=== PATIENT | male | born 1970 | race Caucasian/White ===

== ENCOUNTER 2017-08-21 14:26 | Emergency (ER) | payer BC, OTHER ==
[~2017-08-21] VITALS: Ht 172.7 cm; Wt 85.0 kg
[~2017-08-21 14:26] MED LIST: ESCI1TAB10 PO
[2017-08-21 14:32] VITALS: TEMP 37; Ht 172.7 cm; Wt 85.0 kg
--- NOTE | 2017-08-21 15:19 | DIAGNOSTIC IMAGING REPORT ---
R ANKLE MIN 3 VIEWS ROUTINE CLINICAL HISTORY: Right ankle pain following fall. COMPARISON: None FINDINGS: Alignment of the right ankle is anatomic. There is no acute fracture. Talar dome is intact. There is marked lateral ankle soft tissue swelling. IMPRESSION: 1. No acute fracture or dislocation of the right ankle. 2. Marked lateral ankle soft tissue swelling. Electronically signed by: Luis Felipe Rebolledo M.D. 08/21/2017 3:18 PM Dictated Date/Time: 08/21/2017 3:17 PM
--- NOTE | 2017-08-21 15:27 | EMERGENCY ROOM VISIT NOTE ---
History First contact with patient: 14:37 Chief Complaint: ANKLE PAIN Stated Complaint: RIGHT ANKLE, FELL DOWN TWO STEPS History of Present Illness The patient is a 47 year old male who presents to the Emergency Room via private vehicle with complaints of "right ankle, fell down 2 steps". The patient states that just prior to 2 PM this afternoon he was walking by the hub at [facility], and notes that he missed a step and injured his right ankle. He states that the pain is on the lateral aspect and rates the pain currently as a 4/10. He notes it is worse than the lateral aspect. He denies any numbness, tingling or other injury. Review of Systems A complete 6-point Review of Systems was discussed with the patient, with pertinent positives and negatives listed in the History of Present Illness. All remaining Review of Systems questions can be considered negative unless otherwise specified. Past Medical/Surgical History Medical Problems: (1) Dizziness And Giddiness (2) Enlargement Lymph Nodes Family History Noncontributory Social History Smoking Status: Never Smoker Drug Use: none Housing Status: lives with family Occupation Status: employed Current/Historical Medications Scheduled Escitalopram Oxalate (Lexapro), 20 MG PO DAILY Physical Exam Vital Signs Date Time Temp Pulse Resp B/P (MAP) Pulse Ox O2 Delivery O2 Flow Rate FiO2 08/21/17 16:08 65 16 118/72 99 08/21/17 14:32 37.0 62 16 121/79 99 Room Air Physical Exam VITAL SIGNS - Vital signs and nursing notes were reviewed. Stable. GENERAL -47-year-old male appearing his stated age who is in no acute distress. Communicates well with provider and answers questions appropriately. SKIN - Without rashes. Edema overlying the right lateral malleolus. No erythema, open fracture or deformity noted. EXTREMITIES - No clubbing or peripheral cyanosis. No pretibial edema present. Tenderness and edema overlying the right lateral malleolus. There is no proximal caldwell, knee, foot tenderness. Tenderness localized to the right lateral malleolar region he is neurovascularly intact in this region. Decreased range of motion secondary to pain. +5/5 strength noted in UE/LE bilaterally. Medical Decision & Procedures ER Provider Diagnostic Interpretation: R ANKLE MIN 3 VIEWS ROUTINE CLINICAL HISTORY: Right ankle pain following fall. COMPARISON: None FINDINGS: Alignment of the right ankle is anatomic. There is no acute fracture. Talar dome is intact. There is marked lateral ankle soft tissue swelling. IMPRESSION: 1. No acute fracture or dislocation of the right ankle. 2. Marked lateral ankle soft tissue swelling. Electronically signed by: Luis Felipe Rebolledo M.D. 08/21/2017 3:18 PM Dictated Date/Time: 08/21/2017 3:17 PM Medical Decision Patient was seen and evaluated as above in room D5. Review was performed of nursing notes and vital signs. After obtaining a thorough history and physical examination the above work up was performed. He presents to us today with right lateral malleolar edema status post injury. X-ray obtained. No fracture. I suspect sprain. He will be fitted with a gel ankle splint for immobilization and crutches to decrease weightbearing status. He is to follow with orthopedics/occupational health. He is to return if worsening. He declined pain medication while here. He was given ice packs. the patient was educated upon management, had questions answered prior to discharge, and was discharged home in good condition. In the evaluation and treatment of this patient, the following differential diagnoses were considered: Ankle Fracture, Ankle Sprain, Distal Fibula Fracture , Distal Tibia Fracture, Foot Fracture, Maisonneuve Fracture. Impression Primary Impression: Right ankle pain Departure Information Dispostion Home / Self-Care Condition GOOD Referrals No Doctor, Assigned (PCP) Baljit Chance MD Patient Instructions My [facility] Additional Instructions You have been treated in the Emergency Department for a R Ankle injury. For pain control, you can use the following [id number]-oxgomav medicines (if >12 yo): - Regular strength (325mg/tab) Tylenol (acetaminophen) 2 tabs every 4-6 hours as needed. Do not exceed 12 tablets in a 24 hour period. Avoid taking more than 3 grams (3000 mg) of Tylenol per day. This includes any other sources of acetaminophen you may take on a regular basis. - Regular strength (200 mg/tab) Advil (ibuprofen) 1-2 tabs every 4-6 hours as needed. Do not exceed a dose of 3200 mg per day. If this is a recent injury (<24 hrs), ice can be applied to the area of pain for the first 3 days to help decrease pain and inflammation. You have been provided the number for an Orthopaedic Surgeon. You should call this number as soon as possible to establish a follow-up visit from today's Emergency Department visit. Keep the ankle brace/splint in place until cleared by Orthopedics/workers compensation. Use the crutches you have been provided to keep ALL weight off of the ankle until weight bearing is tolerable. Return to the Emergency Department if your current symptoms worsen despite treatment course outlined above, or if you develop any of the following symptoms : intractable pain despite aforementioned treatment course or new onset of numbness or tingling of the foot.
[2017-08-21 16:08] VITALS: BP 118/72; PULSE 65; O2SAT 99
== END 2017-08-21 16:08 | disposition home or self-care (01) ==
LOC: C.EDB 14:27 → C.EDD 16:08
DX: M25.571 Pain in right ankle and joints of right foot (principal); W10.9XXA Fall (on) (from) unspecified stairs and steps, initial encounter; Y93.01 Activity, walking, marching and hiking; Y99.8 Other external cause status; Y92.29 Other specified public building as the place of occurrence of the external cause

== ENCOUNTER 2022-11-17 07:08 | Observation (INO) ==
--- NOTE | 2022-11-14 10:06 | Anesthesiology Consultation ---
Date of Service November 14, 2022 Assessment & Plan (1) Encounter for pre-operative examination: Chart Review Chart Review: Acceptable Risk for Surgery (pending EKG DOS ) and Patient NOT seen in Pre Admission Testing - Due to age- check EKG DOS (not done preoperatively) -COVID screening: Per PAT nursing assessment on 11/10/22. No known COVID-19 positive contacts or current COVID-19 related symptoms. Travel screen negative. At surgeon discretion if preop Covid testing being done. Removal impacted wisdom teeth 07/06/21= Done under GA With Grade 1-2 view with MAC #3. ETT #7.0, nasal. DVL x 1, atraumatic History Surgery Operation Date: 11/17/22 07:15 Proposed Procedures p Lefort I, Sagittal Osteotomy, Surgical Splint - Rosalio Gutierrez DMD Height/Weight Height: 5 ft 8 in Weight: 70.76 kg Allergies Allergy/AdvReac Type Severity Reaction Status Date / Time minocycline [From Minocin] Allergy Intermediate Hives Verified 11/10/22 08:53 Tetracyclines Allergy Intermediate HIVES Verified 11/10/22 08:53 Medications Home Medications Medication Instructions Recorded Confirmed Last Taken amoxicillin 875 mg-potassium 1 tab PO Q12H #20 tabs 11/10/22 11/10/22 Unknown clavulanate 125 mg tablet chlorhexidine gluconate 0.12 % 15 ml mucous membrane BID pre and 11/10/22 11/10/22 Unknown mouthwash (Peridex) post op Jaw Surgery #473 mL hydrocodone 5 mg-acetaminophen 325 1 tab PO Q4H PRN pain #15 tabs 11/10/22 11/10/22 Unknown mg tablet ondansetron HCl 8 mg tablet 8 mg PO Q8H PRN nausea and 11/10/22 11/10/22 Unknown vomiting #10 tabs Past Medical History Medical History Anxiety and depression Past Family History Family History Mother Breast cancer Other No family history of adverse response to anesthesia Past Surgical History Surgical History H/O excision of mass (~2000) Excision of mass on neck>BENIGN Hx of colonoscopy Hx of cosmetic surgery (~2003) Chin implant Hx of wisdom tooth 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/2021- w/ lap welder Social History Smoking Status: Former smoker Smoking cigarettes per day: smoked cigars occasionally- quit yrs ago Do You Dip or Chew Tobacco: No Hx Alcohol Use: Yes alcohol intake frequency: holidays/special occasions only Hx Substance Use: No substance use type: does not use Lab Results Anesthesia Preop Results Results Anesthesia Widget: WBC 6.57 K/ul (4.8-10.8) 11/10/22 Hgb 14.3 g/dl (14.0-18.0) 11/10/22 Hct 41.8 % (42.0-52.0) L 11/10/22 Plt 205 K/uL (130-400) 11/10/22 PT 11.8 Seconds (9.0-12.0) 11/10/22 PTT 25.6 Seconds (21.0-31.0) 11/10/22 INR 1.1 (0.9-1.1) 11/10/22 Blood Type O Positive 11/10/22 Antibody Screen NEGATIVE 11/10/22
[~2022-11-17 07:08] MED LIST changes: -ESCI1TAB10 PO; +LACTATED RINGER'S 1,000 ML IV SCH; +LR 15ML/HR IV SCH; +ceFAZolin 2000MG 2,000 MG/15 ML SYR IV SCH
[2022-11-17] MEDS ORDERED: LIDOCAINE 2% 2 ML VIAL/AMP(20MG/ML) INFIL ONE ×2 (07:50→07:57)
[2022-11-17] MEDS ORDERED: PROPOFOL IV EMULSION 10 MG/ML 20 ML VIAL IV ONE ×2 (07:50→14:02)
[2022-11-17] MEDS ORDERED: ONDANSETRON INJ 2 MG/ML 2 ML VIAL ONE (07:50)
[2022-11-17] MEDS ORDERED: DEXAMETHASONE SOD INJ 4 MG/ML VIAL ONE (07:50)
[2022-11-17] MEDS ORDERED: MIDAZOLAM HCL 1 MG/ML 2ML VIAL ONE (07:51)
[2022-11-17] MEDS ORDERED: fentaNYL citrate PF 100 MCG/2 ML VIAL ONE ×3 (07:51→11:04)
[2022-11-17] MEDS ORDERED: ROCURONIUM BROMIDE 10 MG/ML 5 ML VIAL IV ONE ×10 (07:56→10:54)
[2022-11-17] MEDS ORDERED: OXYMETAZOLINE 0.05% 30 ML BTL NAE ONE (08:23)
[2022-11-17] MEDS ORDERED: OXYMETAZOLINE 0.05% 30 ML BTL ONE (08:24)
--- NOTE | 2022-11-17 08:28 | History & Physical Bridge Note ---
Date of Service November 17, 2022 History & Physical Bridge Note I have examined the patient, reviewed the History & Physical and in the interval since the performance of the History & Physical I have noted the following changes of clinical significance: no changes noted. OK for the planned OG surgery
[2022-11-17] MEDS ORDERED: PROMETHAZINE HCL 6.25 MG in SODIUM CHLORIDE 0.9% 50 ML IV PRN (08:29)
[2022-11-17] MEDS ORDERED: ONDANSETRON INJ 2 MG/ML 2 ML VIAL IV PRN ×2 (08:29→14:22)
[2022-11-17] MEDS ORDERED: ATROPINE SULFATE 0.1 MG/ML 10ML SYR IV PRN (08:29)
[2022-11-17] MEDS ORDERED: ePHEDrine sulfate 50 MG/ML AMP IV PRN (08:29)
[2022-11-17] MEDS ORDERED: CHLORHEXIDINE GLUCONATE 0.12% 480 ML MT ONE (08:32)
[2022-11-17] MEDS ORDERED: BUPIVACAINE/EPINEPHRINE 0.5% 1:200,000 1.8 ML CARP ONE ×2 (08:32→09:06)
[2022-11-17] MEDS ORDERED: TRIAMCINOLONE ACET 0.1% OINT 15 GM TUBE ONE (08:32)
[2022-11-17] MEDS ORDERED: ePHEDrine sulfate 50 MG/ML SYR ONE (10:06)
[2022-11-17] MEDS ORDERED: SUGAMMADEX SODIUM 200 MG/2 ML VIAL IV ONE (12:13)
[2022-11-17] MEDS ORDERED: SURGICEL ABSORB HEMOSTAT 2IN X 14IN TOP ONE ×3 (12:39→13:37)
[2022-11-17] MEDS: fentaNYL citrate PF 100 MCG/2 ML VIAL IV PRN ×3 (14:20→14:40)
[2022-11-17] MEDS ORDERED: ACETAMINOPHEN SUSP 325 MG/10.15 ML UDC PO PRN (14:22)
[2022-11-17] MEDS ORDERED: ACETAMINOPHEN/HYDROcodone ELIX 15 ML/CUP PO PRN ×2 (14:22)
[2022-11-17] MEDS ORDERED: OXYMETAZOLINE 0.05% 30 ML BTL PRN (14:22)
[2022-11-17] MEDS ORDERED: LORazepam 2 MG/1 ML VIAL IV PRN (14:22)
[2022-11-17] MEDS ORDERED: MoRPHine SULFATE 10 MG/ML CARP/VIAL IV PRN (14:22)
[2022-11-17] MEDS ORDERED: MoRPHine SULFATE 4 MG/ML 1 ML CARP\\VIAL IV PRN (14:22)
--- NOTE | 2022-11-17 15:45 | XRay Report ---
XR mandible <4V CLINICAL HISTORY: Status Post-Op Surgery AP Mandibular and Jaw View COMPARISON STUDY: Mandible 07/06/2021. FINDINGS: Status post bilateral maxillary and mandibular osteotomies transfixed with cortical plates and screws. The alignment appears near anatomic. The hardware appears intact. Orthodontic hardware is noted. IMPRESSION: Postoperative changes as described above. ACT 112: Negative or not required by law. Electronically signed by: Solomon Bertrand M.D. 11/17/2022 3:44 PM
--- NOTE | 2022-11-17 15:49 | Electrocardiogram Report ---
Test Reason : Blood Pressure : / mmHG Vent. Rate : 054 BPM Atrial Rate : 054 BPM P-R Int : 220 ms QRS Dur : 092 ms QT Int : 432 ms P-R-T Axes : 078 078 074 degrees QTc Int : 409 ms Sinus bradycardia with 1st degree A-V block Early repolarization Otherwise normal ECG When compared with ECG of 06-JUL-2021 05:49, No significant change was found Confirmed by Alan Patel ([id number]) on 11/17/2022 3:49:30 PM Referred By: Rosalio Gutierrez Confirmed By:Alan Patel
[2022-11-17] MEDS ORDERED: ICU Protocol for HYPERglycemia SCH (16:30)
--- NOTE | 2022-11-17 16:39 | Post Operative Brief Note ---
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 I propose the following surgical procedures to correct this skeletal malocclusion. LeFort I CPT 07163 with bone graft Sagittal Osteotomy CPT 14657 Surgical splint CPT 31660 I identified the patient and participated in the time-out.: Yes Procedure Operation Date: 11/17/22 08:25 Actual Procedures p Lefort I Sagittal Split(Not Applicable) - Rosalio Gutierrez, SHMUEL Surgeon Rosalio Gutierrez, SHMUEL Subsea Engineer none Estimated Blood Loss 500 Findings Consistent with Post-Op Diagnosis Very retrognathic upper and lower jaws Mandibular advancement over 10 mm Specimens Specimen Description: none per surgeon Drains Fabian Catheter Complications none
[2022-11-17] MEDS: dexAMETHasone 6 MG in SYRINGE 0 ML IV SCH ×2 (16:50→21:04)
--- NOTE | 2022-11-17 16:51 | Oral/Maxillofacial Progress Nt ---
Date of Service November 17, 2022 Assessment & Plan Admission and Anticipated Discharge Date Admission Date: November 17, 2022 Delfina Joya had a major orthognathic surgery procedure this morning. The plan was to advance the maxilla 3 mm with a change in the occlusion plan to allow counterclockwise rotation with a 10 mm sagittal advancement of the lower jaw. This required an excessive amount of muscle striping and reflection to achieve a relaxed advancement of the segments. The surgery took about 5 hours and the blood loss was 500 mostly from oozing of the muscles and marrow spaces. The bleeding was controlled with packing and dressings. At 4:45 Toan is resting in room 3 of the ICU. Given the amount of surgery, blood loss, large 10 + mm advancement ICU admission post op was appropriate care as patient is very lethargic presently. The post op X Rays look great. The inferior nerve was freed but stretched a large distance. The plate fixation on the maxilla and screw fixation on the lower is very stable. Plan Continue supportive care over night. I will see Toan in AM and make a decision as to discharge from ICU at that time. Results & Data Vital Signs (Past 12 Hours) Vital Signs Temp Pulse Pulse Pulse Resp BP BP 11/17/22 16:15 88 9 L 11/17/22 16:15 83 16 119/69 11/17/22 16:00 67 16 132/75 11/17/22 15:45 73 16 121/65 11/17/22 15:30 74 16 134/71 11/17/22 15:15 37.4 C 70 16 143/73 H 11/17/22 15:15 75 11/17/22 15:15 11/17/22 15:00 73 14 147/70 H 11/17/22 14:50 36.3 C L 80 18 139/70 11/17/22 14:40 75 15 132/67 11/17/22 14:30 80 17 124/62 11/17/22 14:20 82 16 132/67 11/17/22 14:16 36 C L 82 20 125/71 11/17/22 07:40 36.5 C 53 L 20 129/79 Pulse Ox Pulse Ox O2 Del Method O2 Del Method O2 Flow Rate 11/17/22 16:15 95 11/17/22 16:15 96 Room Air 11/17/22 16:00 95 Room Air 11/17/22 15:45 97 Room Air 11/17/22 15:30 96 Room Air 11/17/22 15:15 99 2 11/17/22 15:15 11/17/22 15:15 97 Room Air 11/17/22 15:00 98 Nasal Cannula 2 11/17/22 14:50 98 Nasal Cannula 2 11/17/22 14:40 96 Nasal Cannula 2 11/17/22 14:30 98 Nasal Cannula 2 11/17/22 14:20 94 Room Air 11/17/22 14:16 98 Room Air 11/17/22 07:40 100 Room Air PG Care Time/CCT Total # of Minutes Spent Total Time Spent with Patient: Total time spent is greater than 50% in coordination of care (as documented) at patient's floor/unit and/or counseling patient: Coding Level of Care Code None Diagnoses
[2022-11-17] MEDS ORDERED: GLUCAGON FOR INJ 1 MG VIAL SQ PRN (16:57)
[2022-11-17] MEDS ORDERED: CARBOHYDRATES FOR HYPOGLYCEMIA PO PRN (16:57)
[2022-11-17] MEDS ORDERED: GLUCOSE 40% GEL 15 GM TUBE PO PRN (16:57)
[2022-11-17] MEDS ORDERED: GLUCOSE 10 TAB/TUBE PO PRN (16:57)
[2022-11-17] MEDS ORDERED: DEXTROSE 50% 50 ML SYRINGE IV PRN (16:57)
[2022-11-17] MEDS: INSULIN ASPART PER UNIT CHARGE SC SCH ×2 (17:24→21:02)
[2022-11-17] MEDS: KETOROLAC 30 MG/ML VIAL IV SCH ×2 (17:30→23:33)
[2022-11-17] MEDS: SODIUM CHLORIDE 0.9% 1000ML 1,000 ML IV SCH (20:42)
[2022-11-17] MEDS ORDERED: TRIAMCINOLONE ACET 0.1% OINT 15 GM TUBE EXT SCH (21:00)
[2022-11-17] MEDS: ceFAZolin 2000MG 2,000 MG/15 ML SYR IV SCH (21:03)
[2022-11-17] MEDS: CHLORHEXIDINE GLUCONATE 0.12% 480 ML MT SCH (21:03)
--- NOTE | 2022-11-17 23:46 | Critical Care Consultation ---
Date of Consultation November 17, 2022 Assessment & Plan (1) Maxillary retrognathism: (2) Mandibular retrognathism: (3) Anxiety: Plan Reason Critically Ill: S/P Lefort I surgery - to ICU for airway monitoring, and continued evaluation of post anesthesia recovery/sedation. Neuro - Acute pain, Anxiety CAM ICU: NEGATIVE -Pain s/p Lefort I- tiered pain control in place- Rescue Narcan if needed - Ativan PRN Cardiac - No acute needs - NSR on monitor and hemodynamics with adequate SBP and MAPS Respiratory - S/P Lefort I - RR and SPO2 are adequate following recovery- - He is moving good air with no stridors or hematomas- bands in place with cutters at bedside - Trachea midline no hematoma- handling secretions well- Continue Decadron 6 q6 as ordered by primary - Oxymetazoline as needed GI - No acute needs - with antiemetics as needed - Clear diet is ordered RENAL/LYTES - No acute needs - No acute needs ENDO - No acute needs HEME - No acute needs - 500 ml blood loss in OR - consider follow up labs if needed in am - Currently with no drainage, hemodynamics stable and SPO2 >95% on room air ID - No acute needs - Continue with Ancef postoperative care q8 hours - CHG swish and spit BID LINES/IV ACCESS - PIV Continue use of these lines DVT PROPHYLAXIS - SCDS, ambulation - OOB to chair in am- if not dc'd home in morning and hemostasis is ensured can start chemoprophy DISPO: ICU overnight I have personally spent 30 minutes of critical care time in the direct management of this patient. This includes time spent evaluating patient, direct bedside care, chart review, placing orders, interpretation of diagnostic studies, discussion with consultants, patient, and family members, as well as other required patient management activities. This time is exclusive of all separately billable procedures, and separate from and in addition to any other critical care service time. Thank you for allowing us to participate in the care of this patient. Please refer to my attending physician's documentation for any further recommendations. History of Present Illness Reason for Consultation: S/P Lefort I for maxillary hypoplasia Requesting Physician: Rosalio Gutierrez DMD Attending Physician: Rosalio Gutierrez DMD History of Present Illness 52 YOM with medical history of Anxiety, Maxxillary Retrognathism, Mandibular retrognathism who is S/P Lefort I completed by Dr. Gutierrez. Operative note reviewed with EBL 500ml, advancement of lower jaw 10mm that required "excessive muscle striping and reflection to achieve a relaxed advancement of segments. To ICU for slowly awakening post 5 hour anesthesia time. He was evaluated in the ICU earlier in shift, where he awakens to voice is with ice wrap to face and jaw. He is with bands and cutters at the bedside. Pain controlled at this time and is without n/v or supplemental oxygen. Allergies Allergy/AdvReac Type Severity Reaction Status Date / Time minocycline [From Minocin] Allergy Intermediate Hives Verified 11/17/22 07:38 Tetracyclines Allergy Intermediate HIVES Verified 11/17/22 07:38 Home Medications Medication Instructions Recorded Confirmed Type amoxicillin 875 mg-potassium 1 tab PO Q12H #20 tabs 11/10/22 11/17/22 Rx clavulanate 125 mg tablet chlorhexidine gluconate 0.12 % 15 ml mucous membrane BID pre and 11/10/22 11/17/22 Rx mouthwash (Peridex) post op Jaw Surgery #473 mL hydrocodone 5 mg-acetaminophen 325 1 tab PO Q4H PRN pain #15 tabs 11/10/22 11/17/22 Rx mg tablet ondansetron HCl 8 mg tablet 8 mg PO Q8H PRN nausea and 11/10/22 11/17/22 Rx vomiting #10 tabs Patient History Medical History Anxiety and depression Surgical History H/O excision of mass (~1999) Excision of mass on neck>BENIGN Hx of colonoscopy Hx of cosmetic surgery (~2003) Chin implant Hx of wisdom tooth 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/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 Family History Mother Breast cancer Other No family history of adverse response to anesthesia Social History Smoking Status: Former smoker Tobacco Type: Cigars Cigarettes Per Day: smoked cigars occasionally- quit yrs ago; Second Hand Exposure: No; Do You Dip or Chew Tobacco: No; Tobacco Cessation Education Requested by Patient: No Hx Alcohol Use: Yes Hx Substance Use: No Preferred Language: Frisian Communication Ability: Effective Visual Impairment: No Limitations Technical Assoc Required: No Beliefs That Will Affect Care: None marital status: Current Living Situation: Family Current Living Situation Comment: , SON AND DAUGHTER current occupational status: employed current occupation: [employer] Other Information That Helps Us Care for You: No Feels Safe at Home: Yes Safety Concerns: Feels Safe At This Time Assistive Devices: None Review of Systems Review of Systems: REVIEW OF SYSTEMS: Constitutional: No fever, sweats or chills Eyes: No diplopia, no worsening or blurred vision ENT: no trouble swallowing Respiratory: No cough, sputum, no dyspnea Cardiovascular: No chest pain, tightness or palpitations Abdomen: No pain, nausea, vomiting, diarrhea or constipation Musculoskeletal: No joint pain, calf pain, swelling Neurologic: No weakness, numbness, Psychiatric: (+) anxiety Skin: No rash or itch Physical Exam Physical Exam: PHYSICAL EXAM: General: awake, alert, mildly sedated but responds appropriate ENT: PERRL, EOMI, bands on Neuro: AAO x 3, speech muffled secondary to procedure, strength intact bilaterally 5/5, Chest: equal rise and fall of the chest, no accessory muscle use, no heaves or thrills, Clear to auscultation, on room air, Cardiac: Regular rate and rhythm, telemetry reviewed- NSR, skin warm dry, cap refill <3 seconds, peripheral pulses +2 no JVD, no murmur, GI: NABS x 4 quadrants, soft, nontender to palpation, no rebound, guarding or tenderness : Spontaneously voiding, no pain, no CVA tenderness, Extremities: Normal inspection, no peripheral edema or erythema, calfs nontender to palpation Psych: Normal mood and affect Results & Data Results & Data Vital Signs (Past 12 Hours) Vital Signs Temp Pulse Pulse Resp BP BP Pulse Ox 11/17/22 23:00 69 12 110/71 95 11/17/22 22:00 59 L 13 129/67 94 11/17/22 21:00 83 14 142/73 H 97 11/17/22 21:00 37.1 C 11/17/22 23:00 11/17/22 20:00 63 12 140/68 97 11/17/22 19:00 61 15 131/65 97 11/17/22 21:13 11/17/22 20:50 11/17/22 19:37 11/17/22 18:00 11/17/22 18:00 65 16 130/68 96 11/17/22 17:00 64 18 128/99 99 11/17/22 17:00 11/17/22 16:00 11/17/22 16:15 88 9 L 95 11/17/22 16:15 83 16 119/69 96 11/17/22 16:00 67 16 132/75 95 11/17/22 15:45 73 16 121/65 97 11/17/22 15:30 74 16 134/71 96 11/17/22 15:15 37.4 C 70 16 143/73 H 99 11/17/22 15:15 75 11/17/22 15:15 11/17/22 15:00 73 14 147/70 H 98 11/17/22 14:50 36.3 C L 80 18 139/70 98 11/17/22 14:40 75 15 132/67 96 11/17/22 14:30 80 17 124/62 98 11/17/22 14:20 82 16 132/67 94 11/17/22 14:16 36 C L 82 20 125/71 98 Pulse Ox O2 Del Method O2 Del Method O2 Flow Rate 11/17/22 23:00 11/17/22 22:00 11/17/22 21:00 11/17/22 21:00 11/17/22 23:00 96 11/17/22 20:00 11/17/22 19:00 11/17/22 21:13 98 Room Air 11/17/22 20:50 98 Room Air 11/17/22 19:37 97 Room Air 11/17/22 18:00 96 Room Air 11/17/22 18:00 Room Air 11/17/22 17:00 Room Air 11/17/22 17:00 99 Room Air 11/17/22 16:00 96 Room Air 11/17/22 16:15 11/17/22 16:15 Room Air 11/17/22 16:00 Room Air 11/17/22 15:45 Room Air 11/17/22 15:30 Room Air 11/17/22 15:15 2 11/17/22 15:15 11/17/22 15:15 97 Room Air 11/17/22 15:00 Nasal Cannula 2 11/17/22 14:50 Nasal Cannula 2 11/17/22 14:40 Nasal Cannula 2 11/17/22 14:30 Nasal Cannula 2 11/17/22 14:20 Room Air 11/17/22 14:16 Room Air Laboratory Results Abnormal lab results 11/17/22 11/17/22 Range/Units 16:42 20:35 POC Glucose 219 H 162 H (70-99) mg/dl Diagnostic Findings Mandible X-Ray 11/17/22 14:22 XR mandible <4V CLINICAL HISTORY: Status Post-Op Surgery AP Mandibular and Jaw View COMPARISON STUDY: Mandible 07/06/2021. FINDINGS: Status post bilateral maxillary and mandibular osteotomies transfixed with cortical plates and screws. The alignment appears near anatomic. The hardware appears intact. Orthodontic hardware is noted. IMPRESSION: Postoperative changes as described above. ACT 112: Negative or not required by law. Electronically signed by: Solomon Bertrand M.D. 11/17/2022 3:44 PM Medications Administered Home Medications amoxicillin 875 mg-potassium clavulanate 125 mg tablet 1 tab PO Q12H #20 tabs 11/10/22 [Rx Confirmed 11/17/22] chlorhexidine gluconate 0.12 % mouthwash (Peridex) 15 ml mucous membrane BID pre and post op Jaw Surgery #473 mL 11/10/22 [Rx Confirmed 11/17/22] hydrocodone 5 mg-acetaminophen 325 mg tablet 1 tab PO Q4H PRN pain #15 tabs 11/10/22 [Rx Confirmed 11/17/22] ondansetron HCl 8 mg tablet 8 mg PO Q8H PRN nausea and vomiting #10 tabs 11/10/22 [Rx Confirmed 11/17/22] Active Medications Acetaminophen (Acetaminophen Susp 325 Mg/10.15 Ml Udc) 650 mg PO Q4H PRN PRN Reason: Mild Pain (Scale 1,2,3) Stop: 12/17/22 14:21 Hydrocodone Bitart/Acetaminophen (Acetaminophen/Hydrocodone Elix 15 Ml/Cup) 10 ml PO Q3H PRN PRN Reason: moderate pain (scale 4-6) Stop: 12/01/22 14:21 Hydrocodone Bitart/Acetaminophen (Acetaminophen/Hydrocodone Elix 15 Ml/Cup) 15 ml PO Q3H PRN PRN Reason: severe pain (scale 7-10) Stop: 12/01/22 14:21 Chlorhexidine Gluconate (Chlorhexidine Gluconate 0.12% 480 Ml) 15 ml MT BID JANA Stop: 12/17/22 20:59 Last Admin: 11/17/22 21:03 Dose: 15 ml Dextrose (Dextrose 50% 50 Ml Syringe) 25 - 50 ml IV UD PRN; Protocol PRN Reason: Hypoglycemia Protocol Stop: 12/17/22 16:56 Glucagon (Glucagon For Inj 1 Mg Vial) 1 mg SQ UD PRN; Protocol PRN Reason: Hypoglycemia Protocol Stop: 12/17/22 16:56 Glucose (Glucose 40% Gel 15 Gm Tube) 15 - 30 gm PO UD PRN; Protocol PRN Reason: Hypoglycemia Protocol Stop: 12/17/22 16:56 Glucose (Glucose 10 Tab/Tube) 4 - 8 tab PO UD PRN; Protocol PRN Reason: Hypoglycemia Treatment Stop: 12/17/22 16:56 Dexamethasone 6 mg/ Syringe 1.5 mls @ 1 mls/min IV Q6H JANA Stop: 12/17/22 15:59 Last Admin: 11/17/22 21:04 Dose: 1 mls/min Sodium Chloride (Nss 1000ml) 1,000 mls @ 100 mls/hr IV .Q10H JANA Stop: 12/17/22 19:29 Last Admin: 11/17/22 20:42 Dose: Not Given Cefazolin Sodium (Ancef 2000mg) 2,000 mg in 15 mls @ 3.75 mls/min IV Q8H JANA Stop: 11/18/22 19:59 Last Admin: 11/17/22 21:03 Dose: 3.75 mls/min Insulin Aspart (Insulin Aspart Per Unit Charge) 0 units SC ACHS JANA Stop: 12/17/22 17:14 Last Admin: 11/17/22 21:02 Dose: 1 units Ketorolac Tromethamine (Ketorolac 30 Mg/Ml Vial) 30 mg IV Q6H JANA Stop: 11/22/22 17:59 Last Admin: 11/17/22 23:33 Dose: 30 mg Lorazepam (Lorazepam 2 Mg/1 Ml Vial) 1 mg IV Q4H PRN PRN Reason: Sedation/Anxiety Stop: 12/17/22 14:21 Miscellaneous (Carbohydrates For Hypoglycemia ) 15 - 30 gm PO UD PRN PRN Reason: Hypoglycemia Protocol Stop: 12/17/22 16:56 Morphine Sulfate (Morphine Sulfate 4 Mg/Ml 1 Ml Carp\\Vial) 3 mg IV Q1H PRN PRN Reason: moderate pain (scale 4-6) Stop: 12/01/22 14:21 Morphine Sulfate (Morphine Sulfate 10 Mg/Ml Carp/Vial) 5 mg IV Q1H PRN PRN Reason: severe pain (scale 7-10) Stop: 12/01/22 14:21 Last Admin: 11/17/22 15:59 Dose: 5 mg Ondansetron HCl (Ondansetron Inj 2 Mg/Ml 2 Ml Vial) 4 mg IV Q6H PRN PRN Reason: Nausea And Vomiting Stop: 12/17/22 14:21 Oxymetazoline HCl (Oxymetazoline 0.05% 30 Ml Btl) 2 sprays NA Q4H PRN PRN Reason: Nasal Congestion Stop: 12/17/22 14:21 Triamcinolone Acetonide (Triamcinolone Acet 0.1% Oint 15 Gm Tube) 1 appln EXT HS JANA Stop: 12/17/22 20:59 Last Admin: 11/17/22 21:03 Dose: 1 appln Coding Level of Care Code 13864 CRITICAL CARE 1ST 30-74M Diagnoses Maxillary retrognathism M26.19 Mandibular retrognathism M26.19 Anxiety F41.9
[2022-11-18] MEDS: SODIUM CHLORIDE 0.9% 1000ML 1,000 ML IV SCH (05:27)
[2022-11-18] MEDS: ceFAZolin 2000MG 2,000 MG/15 ML SYR IV SCH ×2 (05:29→10:15)
[2022-11-18] MEDS: dexAMETHasone 6 MG in SYRINGE 0 ML IV SCH ×2 (05:29→09:28)
[2022-11-18] MEDS: KETOROLAC 30 MG/ML VIAL IV SCH ×2 (05:29→10:16)
[2022-11-18] MEDS: INSULIN ASPART PER UNIT CHARGE SC SCH (07:57)
[2022-11-18] MEDS: CHLORHEXIDINE GLUCONATE 0.12% 480 ML MT SCH (07:57)
--- NOTE | 2022-11-18 08:20 | Oral/Maxillofacial Progress Nt ---
Date of Service November 18, 2022 Assessment & Plan Admission and Anticipated Discharge Date Admission Date: November 17, 2022 Subjective Toan is VERY anxious this AM. He is doing very well and needed the ICU admission post op as he has improved greatly. Minimal swelling Occlusion excellent Paraesthesia as expected lower lips. He wants to go home and I agree with this--His pain is controlled, diet for less then 24 hours is good. Reviewed oral care, diet, follow up I will see Toan on MondayNov 21 in my office for his first post op follow. Overall He is doing well but a bit anxious which I will add Ativan to his home meds He has my Cell number and e mail for any questions. Results & Data Vital Signs (Past 12 Hours) Vital Signs Temp Pulse Resp BP Pulse Ox Pulse Ox O2 Del Method 11/18/22 06:00 60 13 127/64 97 11/18/22 05:01 78 18 141/78 H 99 11/18/22 04:00 67 13 146/67 H 97 11/18/22 06:09 96 Room Air 11/18/22 03:00 83 16 133/81 97 11/18/22 02:00 60 15 121/62 97 11/18/22 04:04 96 Room Air 11/18/22 03:16 96 Room Air 11/18/22 01:00 98 Room Air 11/18/22 01:00 62 14 118/67 96 11/18/22 00:01 93 H 14 123/84 97 11/18/22 02:22 96 Room Air 11/18/22 00:24 76 11/18/22 00:19 37.0 C 11/18/22 00:11 97 Room Air 11/17/22 23:00 69 12 110/71 95 11/17/22 22:00 59 L 13 129/67 94 11/17/22 21:00 83 14 142/73 H 97 11/17/22 21:00 37.1 C 11/17/22 23:00 96 11/17/22 21:13 98 Room Air 11/17/22 20:50 98 Room Air PG Care Time/CCT Total # of Minutes Spent Total Time Spent with Patient: Total time spent is greater than 50% in coordination of care (as documented) at patient's floor/unit and/or counseling patient: Coding Level of Care Code None Diagnoses
--- NOTE | 2022-11-18 19:28 | Operative Report ---
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 I propose the following surgical procedures to correct this skeletal malocclusion. LeFort I CPT 31002 with bone graft Sagittal Osteotomy CPT 08042 Surgical splint CPT 63381 PG Post Operative Report Pre & Post Diagnosis After this patient is cleared to undergo general anesthesia, she was brought down to the operating room and placed under General anesthesia via nasotracheal intubation. After adequate anesthesia was obtained, the patient was prepped and draped in the usual manner for a mandibularsagittal osteotomy and LeFort I advancement. The patient had a class II occlusion with deviation to the right and maxillary/mandible retrognathism This was a complex deformity in 3 D. Atime out was taken for patient ID, antibiotics, equipment and position verification once all agreed the procedure began. After the facial area was draped with the appropriate sterile technique, local anesthesia was infiltrated into themandibular maxillarytissues to allow for hemostasis with local anesthetic effect. After an adequate period of time to allow for the hemostasis and local anesthetic effect, an oropharyngeal throat pack was placed, the oral cavity was irrigated and suctioned dried with Peridex mouth rinse. At this time, the appropriate time outs to verify the patient, position, type of surgery,antibiotics and equipment once everyone agreed we then started the operative procedure. Since that was a double jaw procedure the plan was to start with the lower jaw but not complete the cuts the complete the upper and then return to the lower for the completion of the bilateral sagittal splints. Right side sagittal split phase I Using an electrocautery instrument, an incision approximately 1.5 cm in length was made in the external oblique region on theright side. The tissue was reflected to expose the bone. Once the bone was reflected; I had good visualization of the inferior border of the mandible, the angle of the mandible, the lingual aspect of the mandible and the nerve as it entered the mandibular foramen. Now with a fiberoptic retractor I was able to hold the lingual tissue out of the way and had good visualization of the lingual cortical plate and the nerve entrance into the bone. With the large round izabela, I was able to remove the spinous processes of the external oblique ridge. Now using a reciprocating saw, an osteotomy was made parallel to the occlusion plane of the mandibular molar teeth approximately 1-2 mm above the nerve. I then used the spear point Adam izabela very carefully to make a trough in the external oblique ridge from the previously made osteotomy to an area between the 1st and 2nd molars. I now continued the osteotomy parallel to the long axis of the lower molarsinferiorly to the inferior border of the mandible, taking great care to avoid any trauma to the neurovascular bundle and to ensure that I cut through the cortical plate into the marrow vascular channel. The previous chin implant was not disturbed. The area was packed and the left side was now addressed. Left side sagittal split phase I Using an electrocautery instrument, an incision approximately 1.5 cm in length was made in the external oblique region on the right side. The tissue was reflected to expose the bone. Once the bone was reflected; I had good visualization of the inferior border of the mandible, the angle of the mandible, the lingual aspect of the mandible and the nerve as it entered the mandibular foramen. Now with a fiberoptic retractor I was able to hold the lingual tissue out of the way and had good visualization of the lingual cortical plate and the nerve entrance into the bone. With the large round izabela, I was able to remove the spinous processes of the external oblique ridge. Now using a reciprocating saw, an osteotomy was made parallel to the occlusion plane of the mandibular molar teeth approximately 1-2 mm above the nerve. I then used the spear point Adam izabela very carefully to make a trough in the external oblique ridge from the previously made osteotomy to an area between the 1st and 2nd molars. I now continued the osteotomy parallel to the long axis of the lower molarsinferiorly to the inferior border of the mandible, taking great care to avoid any trauma to the neurovascular bundle and to ensure that I cut through the cortical plate into the marrow vascular channel.The area was packed and I now turned my attention to the maxilla. LeFort I osteotomy: I turned my attention now to the maxilla. On the preoperative evaluation, the maxilla needed to be advanced 3 mm with a slight correction of the occlusion plan. To accomplish this, a Le Fort I maxillary osteotomy was carried out. An electrocautery instrument was used to make an incision from the 1st bicuspid area on the right side across the midline to the opposite bicuspid area. The tissues reflected in the usual manner to expose the mucoperiosteal tissue and to get good exposure of the anterior nasal spine, the roots of the maxillary anterior and posterior teeth and the piriform rim. Once this was reflected, I was able to then reflect posteriorly to get good access to the pterygoid plate areas. I then spent a lot of time dissecting around the nasal bones to ensure that we had good visualization of the floor of the nose and the piriform rims. At this time,the custom surgical guides were placed with an excellent fit. They were secured with small fixation screw, I ensured that the cuts will be made to avoid any anatomic structures.Before starting the bone cuts since the bone plates were also custom made I pre-drilled the holes to be used later in the fixation process. At this time, a retractor was placed intranasally and I made an osteotomy parallel to the occlusal plane from the piriform rim posteriorly to the tuberosity region. I then completed a similar osteotomy on the left side of the maxilla. Once this was done, a curved osteotome was used to osteotomize the pterygoid plate from the tuberosity region of both right and left sides. A ball curved osteotome was used to osteotomize the medial lawrence of the maxillary sinus. I now used a straight osteotome with a protective edge to osteotomize the nasal septal tissue. I now removed the surgical guides.Once this was done, I was able to reflect all the nasal mucoperiosteal tissue of the floor of the nose. By doing this, the maxilla was quite easily downfractured. The downfracture occurred without any problems.I was not able to preserve then neurovascular bundle posteriorly on the right side and left side they were cauterized to al low removal of bone to accommodate the advancement.With great deal of blunt and sharp dissection as well as removing a lot of bony interferences, I was able to make the maxilla very passive. I then irrigated the maxillary sinuses of any debris and/or polyps that were noted. Hemostasis was in good control. I made sure that the maxilla was quite passive. The preformed surgical appliance, the interim splint was applied to the mandible and the maxilla was easily seated into the split and the maxillary mandibular complex was then rotated superiorly. I noted that the maxilla was now positioned in its new position which was 5 mm from the previous position. The hemostasis was in control and all bony margins were passive. At this time, the maxillary mandibular complex was superiorly repositioned. Great care was taken to make sherice that the condyles were well seated within the glenoid fossa. Being satisfied with this,I placed the preformed custom titanium fixation plates. The plates were passive and lined up with the previously made holes, I then used a titanium screw and obtained direct fixation by the 2 bone plates. Once this was accomplished, I now removed the fixation wires and the intermediate splint.I noted that the maxilla was extremely stable and the occlusion was reproducible.The maxilla was now stable and in ideal post surgical position I turned my attention to the mandible to c omplete the osteotomies. Splitting right side With the use of a bone miller supervisor and a small osteotome, I was able to complete the sagittal split of the right mandibular ramus Great care was taken to avoid any trauma to the neurovascular bundle. The nerve was not traumatized and was in excellent position. Since the advancement on the right side will be about 11-12 mm a lot of tissue reflection was needed to insure a passive advancement. I did a lot of bone reduction to allow for the mandible to be passively positioned without any pressure on the nerve or pressure that could cause distortion of the mandibular condyle. Hemostasis was in excellent control. It was noted that there were few small bony interferences that trimmed with the use of rongeurs and rotary instrument. Once this was accomplished I packed the side with a gauze sponge to prevent any pressure on the nerve and to control bleeding. At this time, I turned my attention to the left side. Splitting left side with the use of a bone miller supervisor and a small osteotome, I was able to complete the sagittal split of the left mandibular ramus. Great care was taken to avoid any trauma to the neurovascular bundle.I did a lot of bone reduction to allow for the mandible to be passively positioned without any pressure on the nerve or pressure that could cause distortion of the mandibular condyle. Hemostasis was in excellent control. It was noted that there were few small bony interferences that trimmed with the use of rongeurs and rotary instrument. Once this was accomplished I packed the side with a gauze sponge to prevent any pressure on the nerve and to control bleeding. Establishing the occlusion Because of the large anterior movement a lot more bone adjustment was needed to gain passive segment relationship. Once the right and left sides were completely cut and the soft tissue was reflected to allow repositioning the final occlusal splint was applied to the mandible and the mandibular complex with the splint was easily rotated and held into position and stabilized with 25 gauge stainless steel wires to the maxilla. Once both sides were split and the segments were layingpassively over each other, the osteotomy site was then trimmed to ensure that there were no bony interferences. I irrigated the areas with normal saline, made sure that the neurovascular bundles were intact and positioned correctly that hemostasis was in excellent control. The advancement was as planned about 10 on the left and 12 on the right. The soft tissue were reflected to allow a passive advancement. the left nerve was in ideal position however the right nerve which was very thin complained to the left was stretched a great deal.and was laying high on the medial surface of the advancing segment. A 4-0 Vicryl suture was used to gently tether the nerve inferior in the middle of the fragment to avoid injury with the fixation. The nerve was very thin from the stretching. Applying Direct osseous fixation Right side--I used a small clasp, placed between the two fragments and noted that the fragments were seating extremely passively over each other. I did some further trimming to ensure that there was no pressure on the nerve and to ensure that the condyle waswell seated. Being satisfied with this, I passed an 11 blade through the cheek, a trocar was placed and then 2 interosseous holes were placed above the neurovascular bundle, but below the external oblique ridge for direct osseous fixation of the right mandibular fragment, also 1 screw below the external oblique ridge for direct osseous fixation of the right mandibular fragment. Left side--I used a small clasp, placed between the two fragments and noted that the fragments were seating extremely passively over each other. I did some further trimming to ensure that there was no pressure on the nerve and to ensure that the condyle waswell seated. Being satisfied with this, I passed an 11 bladethrough the cheek, a trocar was placed and then 3 interosseous holes were placed above the neurovascular bundle I now checked both osteotomy sites and found them to be extremely stable. At this time, the temporary intermaxillary fixation was removed. The occlusion was extremely stable and reproducible. The patient had a good range of motion without clicks or pops or deviations. The sites were irrigated and checked for bleeding. I inspected the lingual aspects to make sure that the screws did not perforate the lingual cortical plate--were necessary the screws were adjusted to insure a flush fit. It was noted that there was a large distance due to the large advancement--I will place a DBX putty graft at the time of closure to add stability for bony union. Closure lower and Bone Grafting with DBX putty I turned my attention first to the right side; approximally 4 cc of DBX putty was gently added to the sagittal advancement site and then a piece of surgical belem was placed over the graft. All excess material was removed. Now with the use of a 4-0 Vicryl suture, I was able to suture the osteotomy site . Once this was accomplished, we turned our attention to the left side and a similar suturing technique and bone grafting was carried out. Using a 6-0 nylon suture 2 skin sutures in each cheek site was used to close the skin. Closure upper The maxillary site was stable and as planned there was a gap on the left side . This was augmented with the remaining DBX putty. The nasal septum was trimmed to help prevent buckling--the septum to the new midline. Before closure of the upper the area was irrigated, hemostasis was controlled. To ensure proper closure with good anatomical form, I was able to grasp the alar cartilages on both the right and left side and then using a 3-0 Mersilene suture, I was able to perform an alar cinch technique to ensure good positioning of the lateral alar cartilages of the nose and to establish good base anatomy of the nose. Once this was done, I made sure that the nasal septum was well positioned in the midline. Being satisfied with this, I then began the V-Y closure of the mucosal tissue starting in the midline and then closed laterally on either side to ensure an even contouring of the tissue. When all was said and done, we had excellent closure of the soft tissue with great support of the nose. 2 dental elastics were applied in the cupid areas to allow for functional elastic stability. an elastic pressure dressing was placed to keep pressure on the lower osteotomies site and help reduce any migration of the graft material. Recovery The patient was allowed to recover in the usual manner. A check to insure all instrument and sponge count was correct was accomplished and verified the oral cavity was suctioned and Ipassed an oral gastric tube. When fully recovered, extubation occurred. All vital signs were extremely stable. Now the anesthesia department transferred the patient to the hospital litter to be taken to the recovery room. I am very pleased with the osteotomy sites, the positioning of the nerve, and the functional improvement that was gained by the osteotomy. ESTIMATED TIME OF OPERATION: Approximately 5.5 hours This was long surgery and the patient was very lethargic in the post anesthetic area. He is a very anxious individual and it was my opinion that he would be better served to spend the night in the ICU rather then a general floor. Overall we achieved an excellent result, excellent fixation and a very stable occlusion I attest to the content of the Intraoperative Record and any orders documented therein. Any exceptions are noted below. 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 I propose the following surgical procedures to correct this skeletal malocclusion. LeFort I CPT 78551 with bone graft Sagittal Osteotomy CPT 25574 Surgical splint CPT 56513 I attest to the content of the Intraoperative Record and any orders documented therein. Any exceptions are noted below.
--- NOTE | 2022-11-26 15:57 | Discharge Summary ---
Date of Service November 18, 2022 Admission HPI Per Admitting Provider Discharge Date: November 18, 2022 Admission Date: November 17, 2022 Delfina Joya had major jaw surgery yesterday in the OR and tolerated the procedures very well. Upon recovery he was extremely anxious and very hyperventilating. Based upon this reaction with long surgery ICU admission was necessary for more controlled patient management. I saw him in the ICU and both myself and the staff needed to reassure him that he was doing well and that the surgery went very well. I saw Toan again on Nov 18 in the ICU Toan is VERY anxious this AM november 18, 2022 He did not sleep Overall: He is doing very well and needed the ICU admission post op as he has improved greatly. Minimal swelling Occlusion excellent Paraesthesia as expected lower lips. He wants to go home and I agree with this--His pain is controlled, diet for less then 24 hours is good. Reviewed oral care, diet, follow up I will see Toan on MondayNov 21 in my office for his first post op follow. Overall He is doing well but a bit anxious which I will add Ativan to his home Meds He has my Cell number and e mail for any questions. He is aware of his anxiety. I called his and reviewed everything regarding home care. Working on reassuring him and controlled anxiety will be our main goal. Discharge Data Consultations 11/17/22 14:27 Consult Cigar Making Machine Supervisor Routine Procedures Performed Operation Date: 11/17/22 08:25 Actual Procedures p Lefort I Sagittal Split(Not Applicable) - Rosalio Gutierrez DMD Coding Level of Care Code 08055 IN/OBS DISCH 30 MIN/LESS Diagnoses
== END 2022-11-18 12:00 | disposition home or self-care (01) ==
LOC: ASU 07:08 → 1E 14:27 → INTOOBSV 14:27